=== PATIENT | male | born 1975 | race Caucasian/White ===

== ENCOUNTER 2019-01-30 08:18 | Day surgery (SDC) | payer MEDICAID ==
[2019-01-23 15:48] LABS: BASOPHILS % (AUTO) 0.4 % (0-1); EOSINOPHILS # (AUTO) 0.1 X10'3 (0-0.9); LYMPHOCYTES # (AUTO) 1.4 X10'3 (1.1-4.8); LYMPHOCYTES % (AUTO) 28.2 % (21-51); MEAN CORPUSCULAR HEMOGLOBIN 32.9 PG (27.0-31.0); MEAN CORPUSCULAR HGB CONC 34.2 g/dL (33.0-36.5); MEAN CORPUSCULAR VOLUME 96.2 FL (78-98); MEAN PLATELET VOLUME 6.8 FL (7.4-10.4); MONOCYTES # (AUTO) 0.5 X10'3 (0-0.9); NEUTROPHILS # (AUTO) 2.9 X10'3 (1.8-7.7); NEUTROPHILS % (AUTO) 59.4 % (42-75); PRE OP HEMATOCRIT 45.9 % (42.0-52.0); PRE OP HEMOGLOBIN 15.7 g/dL (14.0-17.9); PRE OP PLATELET COUNT 213 X10'3 (140-440); RED BLOOD COUNT 4.77 X10'6 (4.70-6.10); RED CELL DISTRIBUTION WIDTH 13.5 % (11.5-14.5)
[2019-01-23 15:59] LABS: ALBUMIN 4.4 G/DL (3.4-5.0); ALBUMIN/GLOBULIN RATIO 1.3 (1.1-1.5); ALKALINE PHOSPHATASE 75 IU/L (46-116); BLOOD UREA NITROGEN 10 MG/DL (7-18); BUN/CREATININE RATIO 10.4 (5.4-32.0); CALCIUM 9.2 MG/DL (8.5-10.1); CHLORIDE 104 MMOL/L (99-107); CREATININE 0.96 MG/DL (0.60-1.10); PRE OP ALT 46 U/L (30-65); PRE OP ANION GAP 5 (8-16); PRE OP AST 23 U/L (10-37); PRE OP BILIRUB, TOTAL 0.6 MG/DL (0.0-1.0); PRE OP GLUCOSE 109 MG/DL (70-104); PRE OP POTASSIUM 4.1 MMOL/L (3.4-5.1); PRE OP SODIUM 141 MMOL/L (135-145); TOTAL CARBON DIOXIDE 32.4 MMOL/L (24-32); TOTAL PROTEIN 7.8 G/DL (6.4-8.2); eGFR 85 ML/MIN
[~2019-01-30] VITALS: Ht 190.5 cm; Wt 95.2 kg
[2019-01-30] VITALS (10 sets, daily range): BP systolic 132–156; BP diastolic 84–96
[~2019-01-30 08:18] MED LIST: HYDR-4353 PO; famotidine 20mg tablet PO ONE; ringers solution, lacted 1,000 ML IV SCH
[2019-01-30] MEDS ORDERED: cefazolin/dext.iso 2gm/100 ML IV ONE (08:30)
[2019-01-30] MEDS ORDERED: vancomycin inj 1,500 MG in normal saline 300ml IV soln IV ONE (08:30)
[2019-01-30] MEDS ORDERED: BUPIVAcaine/PF 2.5 mg/ml (0.25%) 30ml vial ONE (08:56)
[2019-01-30] MEDS ORDERED: ringers solution, lacted 1,000 ML IV SCH (08:57)
[2019-01-30] MEDS ORDERED: morphine 4 MG/ML inj SYRINge IV PRN ×2 (09:00)
[2019-01-30] MEDS ORDERED: meperidine/PF 25mg/ml syringe IV PRN ×2 (09:00)
[2019-01-30] MEDS ORDERED: ondansetron/PF 4mg/2ml inj IV PRN (09:00)
[2019-01-30] MEDS ORDERED: proCHLORperazine 10 MG/2 ml inj IV PRN (09:00)
[2019-01-30] MEDS ORDERED: sevoflurane 250ml liquid IH ONE (10:48)
[2019-01-30] MEDS ORDERED: midazolam 2 mg/2 ml injection ONE (10:48)
[2019-01-30] MEDS ORDERED: dexamethasone sod phosphate 10mg/ml inj ONE (10:48)
[2019-01-30] MEDS ORDERED: fentaNYL/PF 50MCG/1 ML 2ML syringe ONE ×2 (10:48→11:05)
[2019-01-30] MEDS ORDERED: ketorolac trometh. 30mg/ml inj. ONE (10:53)
[2019-01-30] MEDS ORDERED: ondansetron/PF 4mg/2ml inj ONE (10:53)
[2019-01-30] MEDS ORDERED: LIDOcaine 2% (20mg/ml) 5ml vial ONE (10:57)
[2019-01-30] MEDS ORDERED: propofol inj 20 ML IV ONE ×2 (10:57→11:21)
[2019-01-30] MEDS ORDERED: diphenhydrAMINE 50 mg/ml inj ONE (12:08)
--- NOTE | 2019-01-30 12:16 | NUR ---
Received from OR via [facility], accompanied by Anesthesiologist DR CALL and report given by Anesthesiologist. 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 Addendum: 01/30/19 at 1239 by Salud Logan RN Amended: Links added.
[2019-01-30] MEDS: meperidine/PF 25mg/ml syringe IV PRN ×2 (12:42→13:02)
[2019-01-30] MEDS ORDERED: HYDROcodone/acetaminophen 10/325mg tab PO ONE (13:25)
--- NOTE | 2019-01-30 13:46 | NUR ---
PT ABLE TO AMBULATE W/ASSISTANCE, STATES HAS CRUTCHES AT HOME IF NEEDED, D/C INSTRUCTIONS GIVEN AND GONE OVER W/PT, VERBALIZES UNDERSTANDING, D/CD TO HOME VIA W/C TO PRIVATE VEHICLE W/FRIEND W/O INCIDENT. Addendum: 01/30/19 at 1404 by Salud Logan RN Amended: Links added.
== END 2019-01-30 13:46 | disposition home or self-care (01) ==
LOC: PAS 08:18
PROVIDERS: ATTEND Orthopaedic Surgery
DX: T84.84XA Pain due to internal orthopedic prosthetic devices, implants and grafts, initial encounter (principal); Y83.8 Other surgical procedures as the cause of abnormal reaction of the patient, or of later complication, without mention of misadventure at the time of the procedure; Y92.89 Other specified places as the place of occurrence of the external cause; F41.9 Anxiety disorder, unspecified; G89.4 Chronic pain syndrome; E66.8 Other obesity; Z68.26 Body mass index [BMI] 26.0-26.9, adult; M19.072 Primary osteoarthritis, left ankle and foot; M19.071 Primary osteoarthritis, right ankle and foot; Z98.890 Other specified postprocedural states; Z72.89 Other problems related to lifestyle; F17.290 Nicotine dependence, other tobacco product, uncomplicated; Z79.899 Other long term (current) drug therapy
CPT/HCPCS: 20680; 36415; 73650; 76000; 80053; 82948; 85025; 93005; A6222; J1100; J1200; J1885; J2001; J2175; J2250; J2405; J2704; J3010; J3370; J3490; A4215; A4618; A6449; A7000; C1713; J7120